=== PATIENT | male | born 1960 | race Asian ===

== ENCOUNTER 2025-03-03 11:33 | Inpatient (IN) | payer MEDICARE, MEDICAID ==
[~2025-03-03] VITALS: Ht 180.3 cm; Wt 97.1 kg
[2025-03-03 13:10] VITALS: BP 128/65; PULSE 85; RESP 18; TEMP 36.6; O2SAT 99
[2025-03-03] MEDS ORDERED: DEXTROSE 50% WATER 50ML SYRINGE IV PRN (15:15)
[2025-03-03] MEDS ORDERED: ONDANSETRON HCL 4MG/2ML INJ IV PRN (15:30)
[2025-03-03] MEDS ORDERED: MAGNESIUM/ALUMINUM HYDROXIDE/SIMETHICONE 30ML UDC PO PRN (15:30)
[2025-03-03] MEDS ORDERED: IPRATROPIUM/ALBUTEROL 0.5-3(2.5)MG/3ML NEB HHN PRN (15:30)
[2025-03-03] MEDS ORDERED: DOCUSATE SODIUM 100MG CAPSULE PO PRN (15:30)
[2025-03-03] MEDS ORDERED: GUAIFENESIN 200MG/10ML SUGAR FREE UDC PO PRN (15:30)
[2025-03-03] MEDS ORDERED: ACETAMINOPHEN 325MG TABLET PO PRN ×2 (15:30)
[2025-03-03 16:00] VITALS: BP 122/52; PULSE 54; RESP 20; TEMP 37.1; O2SAT 97
[2025-03-03] MEDS: PANTOPRAZOLE SODIUM 40 MG/VIAL IV SCH (16:23)
[2025-03-03 16:45] LABS: CLARITY URINE CLEAR (CLEAR); COLOR URINE YELLOW (YELLOW); GLUCOSE URINE 3+ (NEGATIVE); KETONES URINE TRACE (NEGATIVE); LEUKOCYTE ESTERASE URINE NEGATIVE (NEGATIVE); NITRITE URINE NEGATIVE (NEGATIVE); OCCULT BLOOD URINE NEGATIVE (NEGATIVE); PH URINE 6.5 (4.5-8.0); PROTEIN URINE 4+ (NEGATIVE); SPECIFIC GRAVITY URINE 1.018 (1.005-1.030); UROBILINOGEN URINE 0.2 E.U./dL (0.2-1.0)
[2025-03-03] MEDS: BLOOD SUGAR DIAGNOSTIC STRIP TEST SCH (16:52)
[2025-03-03 16:56] LABS: *AMPHETAMINES SCREEN URINE NEGATIVE (NEGATIVE); *BARBITURATES SCREEN URINE NEGATIVE (NEGATIVE); *BENZODIAZEPINES SCREEN URINE NEGATIVE (NEGATIVE); *COCAINE SCREEN URINE NEGATIVE (NEGATIVE); CANNABINOID URINE SCREEN NEGATIVE (NEGATIVE); METHADONE URINE SCREEN NEGATIVE (NEGATIVE); OPIATES URINE SCREEN NEGATIVE (NEGATIVE); PHENCYCLIDINE URINE SCREEN NEGATIVE (NEGATIVE)
[2025-03-03 16:57] LABS: ECSTASY MDMA SCREEN URINE NEGATIVE (NEGATIVE)
[2025-03-03 16:57] LABS: HEMATOCRIT 33.4 % (42.0-52.0); HEMOGLOBIN 11.2 g/dL (14.0-18.0); MEAN CORPUSCULAR HEMOGLOBIN 31.2 pg (28.0-32.0); MEAN CORPUSCULAR HGB CONC 33.5 g/dL (31.0-37.0); MEAN CORPUSCULAR VOLUME 93.1 fL (80.0-94.0); PLATELET 210 x1000/uL (130-400); RED BLOOD CELL COUNT 3.58 mill/uL (4.7-6.1); RED CELL DISTRIBUTION WIDTH 13.4 % (11.6-14.6); WHITE BLOOD COUNT 5.3 x1000/uL (4.5-11.0)
[2025-03-03] MEDS ORDERED: AMLO10TA80 PO (17:03)
[2025-03-03] MEDS ORDERED: SEVE800T25 PO (17:03)
[2025-03-03] MEDS ORDERED: INSU100I28 SQ (17:03)
[2025-03-03] MEDS ORDERED: GABA-1180 PO (17:03)
[2025-03-03] MEDS ORDERED: INSU100I26 SQ (17:03)
[2025-03-03] MEDS ORDERED: CINA30 PO (17:03)
[2025-03-03] MEDS ORDERED: ROSU40TA PO (17:03)
[2025-03-03] MEDS ORDERED: CARV6.2548 PO (17:03)
[2025-03-03] MEDS ORDERED: ASPI-1497 PO (17:03)
[2025-03-03] MEDS ORDERED: FURO40TA5 PO (17:03)
[2025-03-03] MEDS ORDERED: CLOP-31 PO (17:03)
[2025-03-03] MEDS ORDERED: DAPA5TAB PO (17:03)
[2025-03-03] MEDS ORDERED: ISOS30TA12 PO (17:03)
[2025-03-03 17:05] LABS: CALCIUM 8.5 mg/dL (8.7-10.4)
[2025-03-03 17:08] LABS: PROTHROMBIN TIME 10.6 sec (9.6-11.0)
[2025-03-03 17:09] LABS: CREATINE KINASE MB FRACTION 2.5 ng/mL (0.5-3.6)
[2025-03-03 17:11] LABS: CREATINE KINASE 211 IU/L (46-171); IRON 111 ug/dL (65-175)
[2025-03-03] MEDS: ASPIRIN 81MG TABLET PO NR (17:11)
[2025-03-03] MEDS: CLOPIDOGREL 75MG TABLET PO SCH (17:11)
[2025-03-03] MEDS: INSULIN LISPRO 100 UNITS/ML SUBCUT SCH ×2 (17:13)
[2025-03-03 17:14] LABS: PHOSPHORUS 6.1 mg/dL (2.5-4.9); T4 FREE 1.33 ng/dL (0.89-1.76); THYROID STIMULATING HORMONE 1.07 uIU/mL (0.55-4.78); TOTAL IRON BINDING CAPACITY 180 ug/dl (250-425)
[2025-03-03 17:15] LABS: VITAMIN B12 SERUM 411 pg/mL (211-911)
[2025-03-03 17:26] LABS: BACTERIA URINE TRACE; RBC URINE NONE SEEN /hpf (0-2); WBC URINE 0-2 /hpf (0-2)
[2025-03-03 17:27] LABS: SQUAMOUS EPITHELIAL CELL URINE RARE /lpf (RARE/1+)
[2025-03-03 17:29] LABS: TROPONIN I HIGH SENSITIVITY 85 ng/L (3.0-53)
[2025-03-03 17:30] LABS: LACTIC ACID 2.1 mmol/L (0.4-2.0)
[2025-03-03 20:00] VITALS: BP 142/73; PULSE 59; RESP 18; TEMP 36.4; O2SAT 100
[2025-03-03 20:38] LABS: FOLIC ACID (FOLATE) SERUM 8.83 ng/mL (>5.38)
[2025-03-03 20:48] LABS: HEPATITIS B SURFACE ANTIGEN NEGATIVE (Negative)
[2025-03-03] MEDS ORDERED: ATORVASTATIN CALCIUM 40MG TABLET PO SCH (21:00)
[2025-03-03 21:09] LABS: HEPATITIS A AB IGM NEGATIVE (Negative)
[2025-03-03 21:10] LABS: HEPATITIS B CORE AB IGM NEGATIVE (Negative); HEPATITIS C AB NON REACTIVE (Neg) (Negative)
[2025-03-03] MEDS: ATORVASTATIN CALCIUM 40MG TABLET PO SCH (21:26)
[2025-03-03] MEDS: ISOSORBIDE DINITRATE 30MG TABLET PO SCH (21:26)
[2025-03-03] MEDS: ENOXAPARIN 100MG/ML SYR SUBCUT SCH (21:28)
[2025-03-03] MEDS: INSULIN GLARGINE 100 UNITS/ML SUBCUT SCH (21:31)
[2025-03-03 22:14] LABS: TROPONIN I HIGH SENSITIVITY 80 ng/L (3.0-53)
[2025-03-04] VITALS (16 sets, daily range): BP systolic 108–151; BP diastolic 47–95; PULSE 58–78; RESP 18–20; TEMP 35.78064–37.2; O2SAT 96–98
[2025-03-04 02:32] LABS: CREATINE KINASE MB FRACTION 2.6 ng/mL (0.5-3.6)
[2025-03-04 04:28] LABS: TROPONIN I HIGH SENSITIVITY 80 ng/L (3.0-53)
[2025-03-04] MEDS: FENOFIBRATE NANOCRYSTALLIZED 145MG TABLET PO SCH (08:17)
[2025-03-04] MEDS: AMLODIPINE 10MG TABLET PO SCH (08:17)
[2025-03-04] MEDS: FUROSEMIDE 40MG TABLET PO SCH (08:17)
[2025-03-04] MEDS: ASPIRIN 81MG TABLET PO SCH (08:17)
[2025-03-04 09:39] LABS: BASOPHILS % 0.4 % (0.0-2.0); EOSINOPHILS % 3.1 % (0.0-5.0); HEMATOCRIT. 31.3 % (42.0-52.0); HEMOGLOBIN. 10.6 g/dL (14.0-18.0); LYMPHOCYTES % 35.9 % (20.0-50.0); MEAN CORPUSCULAR HEMOGLOBIN 31.3 pg (28.0-32.0); MEAN PLATELET VOLUME 8.5 fl (7.4-10.4); MONOCYTES % 7.9 % (2.0-8.0); NEUTROPHILS % 52.7 % (40.0-76.0); PLATELET 205 x1000/uL (130-400); WHITE BLOOD COUNT 5.6 x1000/uL (4.5-11.0)
[2025-03-04 09:45] LABS: POTASSIUM 3.8 mEq/L (3.5-5.1)
[2025-03-04 09:46] LABS: CALCIUM 8.6 mg/dL (8.7-10.4)
[2025-03-04 09:52] LABS: ALBUMIN 3.6 g/dL (3.2-4.8)
[2025-03-04 10:02] LABS: CREATINE KINASE MB FRACTION 2.6 ng/mL (0.5-3.6)
[2025-03-04 10:03] LABS: CREATININE 6.5 mg/dL (0.6-1.3)
[2025-03-04 17:20] LABS: TROPONIN I HIGH SENSITIVITY 88 ng/L (3.0-53)
[2025-03-05 04:01] VITALS: BP 121/52; PULSE 76; RESP 18; TEMP 36.7; O2SAT 96
[2025-03-05 07:22] LABS: POTASSIUM 3.9 mEq/L (3.5-5.1)
[2025-03-05 07:23] LABS: CALCIUM 9.1 mg/dL (8.7-10.4)
[2025-03-05 07:25] LABS: BASOPHILS % 0.5 % (0.0-2.0); EOSINOPHILS % 2.5 % (0.0-5.0); HEMATOCRIT. 33.1 % (42.0-52.0); LYMPHOCYTES % 36.6 % (20.0-50.0); MEAN CORPUSCULAR HEMOGLOBIN 30.5 pg (28.0-32.0); MEAN CORPUSCULAR HGB CONC 33.3 g/dL (31.0-37.0); MEAN CORPUSCULAR VOLUME 91.7 fL (80.0-94.0); MEAN PLATELET VOLUME 8.2 fl (7.4-10.4); NEUTROPHILS % 52.4 % (40.0-76.0); PLATELET 207 x1000/uL (130-400); RED BLOOD CELL COUNT 3.61 mill/uL (4.7-6.1); RED CELL DISTRIBUTION WIDTH 13.2 % (11.6-14.6); WHITE BLOOD COUNT 6.8 x1000/uL (4.5-11.0)
[2025-03-05 07:42] LABS: CREATININE 6.7 mg/dL (0.6-1.3)
[2025-03-05 08:58] VITALS: BP 115/71; PULSE 70; RESP 20; TEMP 37; O2SAT 96
[2025-03-05] MEDS ORDERED: NITROGLYCERIN 50MCG/ML 10ML VIAL (CATH LAB) IV ONE (09:00)
[2025-03-05 12:07] VITALS: BP 121/55; PULSE 53; RESP 20; TEMP 37.2; O2SAT 97
[2025-03-05] MEDS ORDERED: VERAPAMIL HCL 2.5 MG/1 ML 2ML VIAL IV ONE (13:25)
[2025-03-05] MEDS ORDERED: DIPHENHYDRAMINE 50MG/ML VIAL ONE (13:25)
[2025-03-05] MEDS ORDERED: HEPARIN 1000 UNITS/ML 10ML ONE ×2 (13:25→14:42)
[2025-03-05] MEDS ORDERED: LIDOCAINE HCL 1% 20ML VIAL ONE (13:25)
[2025-03-05] MEDS ORDERED: IODIXANOL 320MG/ML 100 ML BOTTLE IV ONE ×2 (13:25→14:47)
[2025-03-05] MEDS ORDERED: FENTANYL CITRATE/PF 50MCG/ML 2ML VIAL ONE (13:53)
[2025-03-05] MEDS ORDERED: MIDAZOLAM HCL 2 MG/2 ML VIAL ONE (13:53)
[2025-03-05] MEDS ORDERED: ASPIRIN 325MG TABLET ONE (15:16)
[2025-03-05] MEDS ORDERED: CLOPIDOGREL 75MG TABLET ONE (15:16)
[2025-03-05] MEDS ORDERED: HYDRALAZINE 20MG/ML VIAL ONE (15:20)
[2025-03-05 16:00] VITALS: BP 167/68; PULSE 78; RESP 20; TEMP 36.9; O2SAT 96
[2025-03-05] MEDS ORDERED: ATROPINE SULFATE 1MG/10ML SYR IV PRN (16:00)
[2025-03-05] MEDS: ISOSORBIDE MONONITRATE 60MG TABLET SR 24HR PO SCH (16:20)
[2025-03-05] MEDS: METOPROLOL TARTRATE 25MG TABLET PO SCH (16:20)
[2025-03-05] MEDS: SODIUM CHLORIDE 0.45% 500 ML IV SCH (16:21)
[2025-03-05 20:00] VITALS: BP 107/67; PULSE 62; RESP 20; TEMP 37.2; O2SAT 96
[2025-03-06] VITALS (15 sets, daily range): BP systolic 112–169; BP diastolic 65–109; PULSE 55–81; RESP 14–18; TEMP 36.3918–36.8; O2SAT 95–100
[2025-03-06 07:28] LABS: POTASSIUM 4.1 mEq/L (3.5-5.1)
[2025-03-06 07:29] LABS: CALCIUM 8.8 mg/dL (8.7-10.4)
[2025-03-06 07:33] LABS: BASOPHILS % 0.6 % (0.0-2.0); EOSINOPHILS % 2.7 % (0.0-5.0); HEMATOCRIT. 32.2 % (42.0-52.0); HEMOGLOBIN. 10.8 g/dL (14.0-18.0); LYMPHOCYTES % 28.8 % (20.0-50.0); MEAN CORPUSCULAR HEMOGLOBIN 30.9 pg (28.0-32.0); MEAN CORPUSCULAR HGB CONC 33.4 g/dL (31.0-37.0); MEAN CORPUSCULAR VOLUME 92.5 fL (80.0-94.0); MEAN PLATELET VOLUME 8.3 fl (7.4-10.4); MONOCYTES % 8.4 % (2.0-8.0); NEUTROPHILS % 59.5 % (40.0-76.0); PLATELET 197 x1000/uL (130-400); RED BLOOD CELL COUNT 3.48 mill/uL (4.7-6.1)
[2025-03-06] MEDS: ACETAMINOPHEN 325MG TABLET PO PRN (22:13)
[2025-03-07] VITALS (8 sets, daily range): BP systolic 101–164; BP diastolic 56–95; PULSE 56–80; RESP 13–20; TEMP 36.7–37.1; O2SAT 95–99
[2025-03-07] MEDS: CLONIDINE 0.1MG TABLET PO PRN (06:29)
[2025-03-07 08:12] LABS: CALCIUM 8.9 mg/dL (8.7-10.4); CARBON DIOXIDE 24 mEq/L (21-32); CHLORIDE 102 mEq/L (98-107); SODIUM 139 mEq/L (136-145)
[2025-03-07 08:18] LABS: GLUCOSE 76 mg/dL (70-105); UREA NITROGEN BLOOD 50 mg/dL (9-23)
[2025-03-07 08:20] LABS: PHOSPHORUS 4.6 mg/dL (2.5-4.9)
[2025-03-07 08:48] LABS: BASOPHILS % 0.4 % (0.0-2.0); HEMATOCRIT. 30.6 % (42.0-52.0); HEMOGLOBIN. 10.2 g/dL (14.0-18.0); LYMPHOCYTES % 31.7 % (20.0-50.0); MEAN CORPUSCULAR HEMOGLOBIN 30.5 pg (28.0-32.0); MEAN CORPUSCULAR HGB CONC 33.3 g/dL (31.0-37.0); MEAN CORPUSCULAR VOLUME 91.6 fL (80.0-94.0); MEAN PLATELET VOLUME 8.6 fl (7.4-10.4); MONOCYTES % 8.8 % (2.0-8.0); NEUTROPHILS % 57.1 % (40.0-76.0); PLATELET 187 x1000/uL (130-400); RED BLOOD CELL COUNT 3.34 mill/uL (4.7-6.1); RED CELL DISTRIBUTION WIDTH 13.4 % (11.6-14.6); WHITE BLOOD COUNT 6.1 x1000/uL (4.5-11.0)
[2025-03-07 08:59] LABS: CREATININE 7.2 mg/dL (0.6-1.3)
[2025-03-07] MEDS: FAMOTIDINE 20MG/2ML VIAL IV SCH (10:08)
[2025-03-07] MEDS ORDERED: METO25TA6 PO (19:13)
[2025-03-07] MEDS ORDERED: ISOS60TA76 PO (19:13)
[2025-03-07] MEDS ORDERED: FENO145 PO (19:13)
== END 2025-03-07 21:11 | disposition home health service (06) | DRG 323 ==
LOC: 7WST 13:20 → 3WST 03-05 15:50
PROVIDERS: ADMIT Internal Medicine; ATTEND Internal Medicine
PROC: 5A1D70Z Performance of Urinary Filtration, Intermittent, Less than 6 Hours Per Day (ICD-10-PCS; 2025-03-04)
PROC: 027034Z Dilation of Coronary Artery, One Artery with Drug-eluting Intraluminal Device, Percutaneous Approach (ICD-10-PCS; principal; 2025-03-05)
PROC: 02F03ZZ Fragmentation in Coronary Artery, One Artery, Percutaneous Approach (ICD-10-PCS; 2025-03-05)
PROC: 4A023N7 Measurement of Cardiac Sampling and Pressure, Left Heart, Percutaneous Approach (ICD-10-PCS; 2025-03-05)
PROC: B211YZZ Fluoroscopy of Multiple Coronary Arteries using Other Contrast (ICD-10-PCS; 2025-03-05)
PROC: B240ZZ3 Ultrasonography of Single Coronary Artery, Intravascular (ICD-10-PCS; 2025-03-05)
PROC: 5A1D70Z Performance of Urinary Filtration, Intermittent, Less than 6 Hours Per Day (ICD-10-PCS; 2025-03-06)
DX: T82.855A Stenosis of coronary artery stent, initial encounter (principal); I21.4 Non-ST elevation (NSTEMI) myocardial infarction; I50.43 Acute on chronic combined systolic (congestive) and diastolic (congestive) heart failure; N18.6 End stage renal disease; I25.110 Atherosclerotic heart disease of native coronary artery with unstable angina pectoris; I13.2 Hypertensive heart and chronic kidney disease with heart failure and with stage 5 chronic kidney disease, or end stage renal disease; Z20.822 Contact with and (suspected) exposure to COVID-19; E78.5 Hyperlipidemia, unspecified; D64.9 Anemia, unspecified; I25.10 Atherosclerotic heart disease of native coronary artery without angina pectoris; E11.65 Type 2 diabetes mellitus with hyperglycemia; E11.22 Type 2 diabetes mellitus with diabetic chronic kidney disease; E66.9 Obesity, unspecified; Z79.02 Long term (current) use of antithrombotics/antiplatelets; Z79.4 Long term (current) use of insulin; Z79.82 Long term (current) use of aspirin; Z79.899 Other long term (current) drug therapy; Z86.73 Personal history of transient ischemic attack (TIA), and cerebral infarction without residual deficits; Z99.2 Dependence on renal dialysis; Z68.29 Body mass index [BMI] 29.0-29.9, adult; Y83.1 Surgical operation with implant of artificial internal device as the cause of abnormal reaction of the patient, or of later complication, without mention of misadventure at the time of the procedure
CPT/HCPCS: 36415; 71045; 80048; 80061; 80305; 81003; 82040; 82550; 82553; 82607; 82728; 82746; 82962; 83036; 83540; 83550; 83605; 83735; 84100; 84439; 84443; 84484; 85025; 85027; 85347; 86705; 86709; 87340; 87426; 90935; 92928; 92978; 93005; 93306; 93458; 97166; A4606; C1753; C1769; C1887; C1893; J0360; J1200; J1644; J1650; J1815; J2250; J2470; J3010; J3490; Q9967; C1725; C1761; C1874

== ENCOUNTER 2025-04-14 14:52 | Inpatient (IN) | payer MEDICARE, MEDICAID ==
[~2025-04-14] VITALS: Ht 180.3 cm; Wt 72.8 kg
[~2025-04-14 14:52] MED LIST: AMLO10TA80 PO; ASPI-1497 PO; CINA30 PO; CLOP-31 PO; DAPA5TAB PO; FENO145 PO; FURO40TA5 PO; GABA-1180 PO; INSU100I26 SQ; INSU100I28 SQ; ISOS60TA76 PO; METO25TA6 PO; ROSU40TA PO; SEVE800T25 PO
[2025-04-14 15:50] LABS: BASOPHILS % 0.5 % (0.0-2.0); EOSINOPHILS % 0.6 % (0.0-5.0); HEMOGLOBIN. 11.3 g/dL (14.0-18.0); LYMPHOCYTES % 11.9 % (20.0-50.0); MEAN CORPUSCULAR HEMOGLOBIN 30.7 pg (28.0-32.0); MEAN CORPUSCULAR HGB CONC 33.4 g/dL (31.0-37.0); MEAN CORPUSCULAR VOLUME 91.9 fL (80.0-94.0); MEAN PLATELET VOLUME 8.1 fl (7.4-10.4); MONOCYTES % 6.1 % (2.0-8.0); NEUTROPHILS % 80.9 % (40.0-76.0); PLATELET 239 x1000/uL (130-400); RED CELL DISTRIBUTION WIDTH 14.1 % (11.6-14.6); WHITE BLOOD COUNT 6.4 x1000/uL (4.5-11.0)
[2025-04-14 15:57] LABS: CHLORIDE 99 mEq/L (98-107); POTASSIUM 3.8 mEq/L (3.5-5.1); SODIUM 135 mEq/L (136-145)
[2025-04-14 15:58] LABS: CALCIUM 8.3 mg/dL (8.7-10.4); CARBON DIOXIDE 23 mEq/L (21-32)
[2025-04-14 16:03] LABS: GLUCOSE 200 mg/dL (70-105); UREA NITROGEN BLOOD 35 mg/dL (9-23)
[2025-04-14 16:12] LABS: CREATININE 5.1 mg/dL (0.6-1.3); TROPONIN I HIGH SENSITIVITY 67 ng/L (3.0-53)
[2025-04-14 18:24] VITALS: BP 143/66; PULSE 71; RESP 18; TEMP 36.1; O2SAT 98
[2025-04-14 20:00] VITALS: BP 131/67; PULSE 81; RESP 18; TEMP 36.6; O2SAT 99
[2025-04-14 22:23] VITALS: BP 131/67; PULSE 81; RESP 18; TEMP 36.6
[2025-04-14] MEDS ORDERED: IPRATROPIUM/ALBUTEROL 0.5-3(2.5)MG/3ML NEB HHN PRN (23:00)
[2025-04-14] MEDS ORDERED: ACETAMINOPHEN 325MG TABLET PO PRN (23:00)
[2025-04-14] MEDS ORDERED: DEXTROSE 50% WATER 50ML SYRINGE IV PRN (23:00)
[2025-04-14] MEDS ORDERED: CLONIDINE 0.1MG TABLET PO PRN (23:00)
[2025-04-14] MEDS ORDERED: ONDANSETRON HCL 4MG/2ML INJ IV PRN (23:00)
[2025-04-15] VITALS (9 sets, daily range): BP systolic 115–149; BP diastolic 57–86; PULSE 61–72; RESP 16–20; TEMP 36.50292–36.6; O2SAT 96–100
[2025-04-15] MEDS: BLOOD SUGAR DIAGNOSTIC STRIP TEST SCH (06:06)
[2025-04-15 06:23] LABS: BASOPHILS % 0.4 % (0.0-2.0); EOSINOPHILS % 0.9 % (0.0-5.0); HEMATOCRIT. 33.4 % (42.0-52.0); HEMOGLOBIN. 11.3 g/dL (14.0-18.0); LYMPHOCYTES % 18.3 % (20.0-50.0); MEAN CORPUSCULAR HEMOGLOBIN 30.6 pg (28.0-32.0); MEAN CORPUSCULAR HGB CONC 33.8 g/dL (31.0-37.0); MEAN CORPUSCULAR VOLUME 90.7 fL (80.0-94.0); MONOCYTES % 7.9 % (2.0-8.0); NEUTROPHILS % 72.5 % (40.0-76.0); PLATELET 209 x1000/uL (130-400); RED BLOOD CELL COUNT 3.68 mill/uL (4.7-6.1); RED CELL DISTRIBUTION WIDTH 14.5 % (11.6-14.6); WHITE BLOOD COUNT 6.4 x1000/uL (4.5-11.0)
[2025-04-15 06:30] LABS: CALCIUM 8.3 mg/dL (8.7-10.4); POTASSIUM 3.7 mEq/L (3.5-5.1)
[2025-04-15 06:32] LABS: CREATINE KINASE MB FRACTION 3.1 ng/mL (0.5-3.6)
[2025-04-15 06:37] LABS: THYROID STIMULATING HORMONE 1.59 uIU/mL (0.55-4.78)
[2025-04-15 08:13] LABS: CREATININE 5.5 mg/dL (0.6-1.3)
[2025-04-15] MEDS: CLOPIDOGREL 75MG TABLET PO SCH (08:59)
[2025-04-15] MEDS: AMLODIPINE 10MG TABLET PO SCH (09:00)
[2025-04-15] MEDS: ISOSORBIDE MONONITRATE 60MG TABLET SR 24HR PO SCH (09:03)
[2025-04-15] MEDS: ENOXAPARIN 30MG/0.3ML SYR SUBCUT SCH (09:03)
[2025-04-15] MEDS: ASPIRIN 81MG EC TABLET PO SCH (09:04)
[2025-04-15] MEDS: SEVELAMER CARBONATE 800 MG TABLET PO SCH (09:04)
[2025-04-15] MEDS: GABAPENTIN 300MG CAPSULE PO SCH (09:04)
[2025-04-15] MEDS: FENOFIBRATE NANOCRYSTALLIZED 145MG TABLET PO SCH (09:04)
[2025-04-15] MEDS: EMPAGLIFLOZIN 10MG TABLET PO SCH (09:04)
[2025-04-15] MEDS: FUROSEMIDE 40MG TABLET PO SCH (09:04)
[2025-04-15] MEDS: CINACALCET HCL 30MG TABLET PO SCH (09:05)
[2025-04-15] MEDS: INSULIN LISPRO 100 UNITS/ML SUBCUT SCH ×2 (09:07)
[2025-04-15 11:32] LABS: HEPATITIS B SURFACE ANTIGEN NEGATIVE (Negative)
[2025-04-15 11:53] LABS: HEPATITIS A AB IGM NEGATIVE (Negative)
[2025-04-15 11:54] LABS: HEPATITIS B CORE AB IGM NEGATIVE (Negative); HEPATITIS C AB NON REACTIVE (Neg) (Negative)
[2025-04-15] MEDS: LORAZEPAM 0.5MG TABLET PO PRN (19:56)
[2025-04-15 22:38] LABS: CREATINE KINASE MB FRACTION 3.3 ng/mL (0.5-3.6)
[2025-04-15] MEDS: INSULIN GLARGINE 100 UNITS/ML SUBCUT SCH (23:07)
[2025-04-16 08:20] LABS: BASOPHILS % 0.5 % (0.0-2.0); EOSINOPHILS % 1.8 % (0.0-5.0); HEMATOCRIT. 37.7 % (42.0-52.0); HEMOGLOBIN. 12.7 g/dL (14.0-18.0); LYMPHOCYTES % 27.1 % (20.0-50.0); MEAN CORPUSCULAR HEMOGLOBIN 31.1 pg (28.0-32.0); MEAN CORPUSCULAR HGB CONC 33.5 g/dL (31.0-37.0); MEAN CORPUSCULAR VOLUME 92.7 fL (80.0-94.0); MEAN PLATELET VOLUME 8.1 fl (7.4-10.4); MONOCYTES % 8.4 % (2.0-8.0); NEUTROPHILS % 62.2 % (40.0-76.0); PLATELET 253 x1000/uL (130-400); RED BLOOD CELL COUNT 4.07 mill/uL (4.7-6.1); WHITE BLOOD COUNT 6.1 x1000/uL (4.5-11.0)
[2025-04-16 08:28] LABS: POTASSIUM 3.7 mEq/L (3.5-5.1)
[2025-04-16 08:30] LABS: CALCIUM 8.4 mg/dL (8.7-10.4)
[2025-04-16 08:45] LABS: CREATININE 5.4 mg/dL (0.6-1.3)
[2025-04-16 12:38] VITALS: BP 135/67; PULSE 75; TEMP 97.1; O2SAT 99
== END 2025-04-16 13:10 | disposition home health service (06) | DRG 280 ==
LOC: ER 14:52 → EDBEDREQ 17:31 → EDBEDREQTM 17:31 → 6WST 18:06
PROVIDERS: ADMIT Internal Medicine; ATTEND Internal Medicine
PROC: 5A1D70Z Performance of Urinary Filtration, Intermittent, Less than 6 Hours Per Day (ICD-10-PCS; principal; 2025-04-15)
DX: I21.4 Non-ST elevation (NSTEMI) myocardial infarction (principal); N18.6 End stage renal disease; I13.2 Hypertensive heart and chronic kidney disease with heart failure and with stage 5 chronic kidney disease, or end stage renal disease; I50.32 Chronic diastolic (congestive) heart failure; R55 Syncope and collapse; I25.10 Atherosclerotic heart disease of native coronary artery without angina pectoris; E11.22 Type 2 diabetes mellitus with diabetic chronic kidney disease; E83.51 Hypocalcemia; F41.9 Anxiety disorder, unspecified; J44.9 Chronic obstructive pulmonary disease, unspecified; D63.8 Anemia in other chronic diseases classified elsewhere; Z95.5 Presence of coronary angioplasty implant and graft; Z79.4 Long term (current) use of insulin; Z86.73 Personal history of transient ischemic attack (TIA), and cerebral infarction without residual deficits; Z79.899 Other long term (current) drug therapy; Z79.02 Long term (current) use of antithrombotics/antiplatelets; Z79.82 Long term (current) use of aspirin; Z99.2 Dependence on renal dialysis
CPT/HCPCS: 36415; 71045; 80048; 80061; 82550; 82553; 82962; 83036; 83735; 83880; 84443; 84484; 85025; 86705; 86709; 86850; 86900; 87340; 90935; 93005; 93970; 99291; A4606; J1650; J1815